=== PATIENT | male | born 1970 | race African-American/Black ===

== ENCOUNTER 2016-11-25 05:41 | Inpatient (IN) | payer BC ==
[2016-11-12 09:31] LABS: HEMATOCRIT 41.6 % (42.0-52.0); HEMOGLOBIN 14.5 gm/dL (14.0-18.0); MCH 31.4 pg (26.0-34.0); MCHC 34.8 g/dL (28.0-37.0); MCV 90.5 fL (80.0-100.0); RBC 4.6 mil/uL (4.50-6.00); RDW 12.6 % (10.5-14.5); WBC 2.9 thou/uL (4.0-11.0)
[2016-11-12 09:40] LABS: URINE BILIRUBIN NEGATIVE (Negative); URINE BLOOD NEGATIVE (Negative); URINE COLOR YELLOW; URINE GLUCOSE-RANDOM* NEGATIVE (Negative); URINE KETONES NEGATIVE (Negative); URINE LEUKOCYTES-REFLEX NEGATIVE (Negative); URINE PROTEIN (DIPSTICK) NEGATIVE (Negative); URINE UROBILINOGEN 0.2 E.U./dl (0.2-1.0)
[2016-11-12 09:43] LABS: PROTIME 10.8 Seconds (9.3-11.4)
[2016-11-12 09:44] LABS: ALBUMIN 3.9 g/dL (3.4-5.0); CALCIUM 9.1 mg/dL (8.5-10.1); CREATININE 0.9 mg/dL (0.6-1.3); POTASSIUM 3.8 mmol/L (3.5-5.1)
[2016-11-25] VITALS (9 sets, daily range): BP systolic 97–159; BP diastolic 72–87
[~2016-11-25] VITALS: Ht 175.3 cm; Wt 64.9 kg
--- NOTE | ~2016-11-25 | H ---
[facility] [address] [place] [address] HISTORY AND PHYSICAL Name: CRISTINO NGUYEN Room #: 537-P [facility] IN M.R.#: [id number] Admission: 11/25/16 Attend Phys: Broderick Jolley MD Discharge: 11/26/16 Date of : 66 Report #: [id number] THIS REPORT FOR: //name// For History and Physical, please see office documentation/handwritten note in the patient's medical record. By: 0810 Broderick Jolley MD /
--- NOTE | ~2016-11-25 | O ---
[facility] [place] [address] OPERATIVE REPORT Name: CRISTINO NGUYEN Room #: 537-P [facility] IN M.R.#: [id number] Admission: 11/25/16 Attend Phys: Broderick Jolley MD Discharge: 11/26/16 Date of : 66 Report #: [id number] THIS REPORT FOR: //name// CC: Ricci Jolley DATE OF SERVICE: 11/25/2016 PREOPERATIVE DIAGNOSIS: Right hip osteoarthritis. POSTOPERATIVE DIAGNOSIS: Right hip osteoarthritis. PROCEDURE: Right total hip arthroplasty using a revision femoral stem. SURGEON: Broderick Jolley M.D. FOOD AND NUTRITION SUPERVISOR: Broderick Gallegos M.D. and Geri Hawthorne PA-C. ANESTHESIA: General endotracheal. IMPLANTS: [employer]hew size 56 R3 acetabular cup with one acetabular screw and a size 40+0 Oxinium head as well as a Redapt size 13 x 240 standard offset femoral stem. ESTIMATED BLOOD LOSS: 150 mL. COMPLICATIONS: None. SPECIMENS: None. CONDITION UPON LEAVING THE OPERATING ROOM: Stable. INDICATIONS FOR PROCEDURE: The patient at a 46-year-old gentleman with severe right hip osteoarthritis. He had failed conservative treatment for this and elected for right total hip arthroplasty. He previously has had a right midshaft femur fracture that was treated with an IM nail subsequently and has had his nail removed. DESCRIPTION OF PROCEDURE: Risks, benefits, alternatives, complications were discussed in detail with the patient including but not limited to risk of anesthesia, risk of damage to nerves, arteries, blood vessels, risk for infection, bleeding, risk for leg length discrepancy, instability, intraoperative fracture and need for reoperation. Informed consent was obtained from the patient. The right hip was appropriately marked in the preoperative holding area. IV Ancef was given for preoperative antibiotics. He was brought to the operating room and placed in supine position on the operating room table. [address] [address] OPERATIVE REPORT Name: WENDYCRISTINO Wilfred Room #: 537-P [facility] IN M.R.#: [id number] Admission: 11/25/16 Attend Phys: Broderick Jolley MD Discharge: 11/26/16 Date of : 66 Report #: [id number] General endotracheal anesthesia was induced without complication. He was then placed in the left lateral decubitus position with the right hip uppermost. Right hip and lower extremity were prepped and draped in normal sterile fashion. Timeout was performed properly identifying the patient and procedure as well as the instrumentation and implants. All in the operating room were in agreement. Standard posterior approach to the hip was made with 10 blade through the skin. Dissection was taken down the fascia with Bovie cautery and a fresh #10 blade was used to make a fascial incision. This was taken proximally and distally with curved Boyle scissor. Charnley retractor was placed and he had extensive scar tissue along the posterior aspect of the femur. The piriformis was not identifiable and the posterior capsule and scar tissue were taken off subperiosteally off the greater trochanter. Deep retractors were placed, and the hip was dislocated and there was extensive osteoarthritic change of the femoral head. Femoral neck cut was made 1 cm proximal to lesser trochanter and femoral head was removed. Deep acetabular retractors were placed and the labrum was removed sharply. Pulvinar was removed with Bovie cautery. Acetabulum was then sequentially reamed up to a size 56, at which point there was excellent bleeding cancellous bone. A size 55 trial cup was placed in, found to have a good fit. A final size 56 R3 acetabular cup was placed and one acetabular screw was placed for backup fixation. The polyethylene liner was placed for a size 40 head. Attention was then turned to the femur. This was reamed and broached and it was decided to check an intraoperative x-ray secondary to very sclerotic bone within his femoral canal to ensure that we were within the canal with our broach. The intraoperative x-ray showed a lateral perforation of the cortex with the broach and at this point, it was decided that we may need to switch to a long stem. My partner, Dr. Broderick Gallegos joined me for this portion of the case to help with decision making and assistance. We had to use multiple drills to drill out the femoral canal and ultimately we were able to get down into the femoral canal under fluoroscopic ____ imaging. It was decided that we use a Redapt stem for this and we reamed down up to a size 13 reamer, this was left in place and ____ proximally. A size 13 x 240 Redapt trial was then placed. Hip was reduced, taken through range of motion, found to be stable, found to have near equal leg lengths using a 40+4 head. Hip was then dislocated and the trial was removed and a final size 13 x 240 standard offset Redapt stem was placed down the femoral canal under fluoroscopic guidance to ensure that we were within the canal under AP and lateral imaging. This was seated to the level of the greater trochanter trialed again with a 40+0 head. Hip was reduced, taken through range of motion, found to be stable, found to have nearly equal leg lengths. Hip was dislocated one more time, wound was thoroughly irrigated with normal saline. Final size 40+4 Oxinium head was placed. Hip was reduced, taken through range of motion, found to be stable. The wound was thoroughly irrigated with normal saline. A periarticular injection consisting of morphine, ropivacaine, epinephrine and Toradol was placed around the hip joint. The capsule was repaired with 0 FiberWire. Fascia was closed with 0 Vicryl, skin was closed with 2-0 Vicryl and 3-0 Monocryl, Dermabond and Aquacel. The patient [facility] [address] [place] [address] OPERATIVE REPORT Name: CRISTINO NGUYEN Room #: 537-P [facility]#: [id number] Admission: 11/25/16 Attend Phys: Broderick Jolley MD Discharge: 11/26/16 Date of : 66 Report #: [id number] tolerated this procedure well and went to the recovery room under care of anesthesia postoperatively. <ELECTRONICALLY SIGNED> By: Broderick Jolley MD 11/27/16 0927 1440 [id number] Broderick Jolley MD /nt
[~2016-11-25 05:41] MED LIST: HYDROCODON-ACE1 EAC7 PO; IBUPROFEN 200200 M1 PO; LEVOTHYROXIN0.125 M1 PO; MEDROLDOSEPACK PO; PERCOCET PO; ZANAFLEX4 MG PO
[2016-11-26] VITALS: BP 114/67
[2016-11-26 04:00] VITALS: BP 103/57
[2016-11-26 05:29] LABS: HEMATOCRIT 31.7 % (42.0-52.0); HEMOGLOBIN 11.2 gm/dL (14.0-18.0); MCH 31.8 pg (26.0-34.0); MCHC 35.4 g/dL (28.0-37.0); RBC 3.52 mil/uL (4.50-6.00); RDW 12.1 % (10.5-14.5); WBC 8.9 thou/uL (4.0-11.0)
[2016-11-26 07:40] VITALS: BP 117/71
[2016-11-26] MEDS ORDERED: CVS BUFFERED A325 MG PO (08:40)
[2016-11-26] MEDS ORDERED: MS CONTIN15 MG PO (08:41)
[2016-11-26] MEDS ORDERED: PERCOCET PO (08:41)
[2016-11-26] MEDS ORDERED: NEURONTIN 300300 M1 PO (08:41)
[2016-11-26] MEDS ORDERED: ULTRA-LIGHT RO1 EACH MC (08:42)
[2016-11-26 10:52] VITALS: BP 117/71
[2016-11-26 12:11] VITALS: BP 117/71
== END 2016-11-26 13:43 | disposition home health service (06) | DRG 470 ==
LOC: TBA 05:41 → 5S 05:41 → PRE 08:12 → 5S 16:57
PROVIDERS: Orthopaedic Surgery
PROC: 0SR901Z Replacement of Right Hip Joint with Metal Synthetic Substitute, Open Approach (ICD-10-PCS; principal; 2016-11-25)
DX: M16.11 Unilateral primary osteoarthritis, right hip (principal)
CPT/HCPCS: 10785; 50010; 50101; 50149; 50382; 50414; 50455; 50612; 50635; 51412; 51771; 52256; 53078; 53368; 54118; 56524; 56527; 56528; 56530; 57095; 62110; 62900; 70005

== ENCOUNTER 2018-02-26 01:39 | Emergency (ER) | payer BC ==
[~2018-02-26] VITALS: Ht 175.3 cm; Wt 72.6 kg
--- NOTE | ~2018-02-26 | EKG ---
[address] [place] [address] ELECTROCARDIOGRAM REPORT Name: CRISTINO NGUYEN [id number] Admission: 02/26/18 Attend Phys: Discharge: 02/26/18 Date of : 66 Report #: [id number] THIS REPORT FOR: //name// [facility] ED Test Date: 2018-02-26 Test Time: 02:05:02 Pat Name: CRISTINO NGUYEN Department: Room: Gender: M Supervisory Investigative Specialist: JEN : 1970 Requested By: Johnny Garcia Order Number: [id number] MD: Salomon Coronado Measurements Intervals [place] Rate: 67 P: 68 AR: 158 QRS: 70 QRSD: 95 T: 55 QT: 374 QTc: 395 Interpretive Statements Sinus rhythm No significant abnormality Compared to ECG 10/12/2015 13:17:23 Atrial premature complex(es) no longer present Electronically Signed On 03-01-2018 9:00:38 CDT by Salomon Coronado [email or web address] <ELECTRONICALLY SIGNED> By: Salomon Coronado MD, [facility] 03/01/18 0900 D: [id number] Salomon Coronado MD, FACC /EPI
[~2018-02-26 01:39] MED LIST changes: +CVS BUFFERED A325 MG PO; +MS CONTIN15 MG PO; +NEURONTIN 300300 M1 PO; +ULTRA-LIGHT RO1 EACH MC
[2018-02-26 02:19] LABS: URINE BILIRUBIN NEGATIVE (Negative); URINE BLOOD NEGATIVE (Negative); URINE CLARITY CLEAR; URINE COLOR YELLOW; URINE GLUCOSE-RANDOM* NEGATIVE (Negative); URINE KETONES NEGATIVE (Negative); URINE NITRITE-REFLEX NEGATIVE (Negative); URINE PROTEIN (DIPSTICK) NEGATIVE (Negative); URINE UROBILINOGEN 0.2 E.U./dl (0.2-1.0)
[2018-02-26 02:23] LABS: URINE LEUKOCYTES-REFLEX 1+ (Negative)
[2018-02-26 02:24] LABS: HEMOGLOBIN 14.4 gm/dL (14.0-18.0); MCHC 35.1 g/dL (28.0-37.0); MCV 91.3 fL (80.0-100.0); RBC 4.49 mil/uL (4.50-6.00); RDW 12.6 % (10.5-14.5); WBC 4.3 thou/uL (4.0-11.0)
[2018-02-26 02:32] LABS: ANION GAP 6 mmol/L (7-16); BUN 4 mg/dL (7-18); CALCIUM 9.2 mg/dL (8.5-10.1); CHLORIDE 102 mmol/L (98-107); CO2 29 mmol/L (21-32); CREATININE 0.9 mg/dL (0.7-1.3); GLUCOSE 101 mg/dL (74-106); POTASSIUM 3.5 mmol/L (3.5-5.1); SODIUM 137 mmol/L (136-145)
[2018-02-26 02:37] LABS: MUCUS >6 Heavy strn/LPF (None Seen); SQUAMOUS 0-3 Few /LPF (0-3); URINE RBC 0-2 Rare /HPF (0-2)
[2018-02-26 02:39] LABS: CASTS None Seen /LPF (None Seen); CRYSTALS None Seen /LPF (None Seen)
[2018-02-26 02:40] LABS: ALBUMIN 3.9 g/dL (3.4-5.0); LIPASE 428 U/L (73-393); SGOT 20 U/L (15-37); SGPT 27 U/L (30-65); TOTAL BILIRUBIN 0.8 mg/dL (<0.1-1.0); TOTAL PROTEIN 7.9 g/dL (6.4-8.2); TROPONIN-I <0.06 ng/mL (<0.06)
[2018-02-26] MEDS ORDERED: PEPCID20 MG PO (03:27)
== END 2018-02-26 05:07 | disposition home or self-care (01) ==
LOC: ER 01:39
PROVIDERS: Emergency Medicine
DX: K85.90 Acute pancreatitis without necrosis or infection, unspecified (principal); K29.20 Alcoholic gastritis without bleeding; N39.0 Urinary tract infection, site not specified; A59.9 Trichomoniasis, unspecified; Z96.641 Presence of right artificial hip joint; F17.210 Nicotine dependence, cigarettes, uncomplicated

== ENCOUNTER → 2018-07-30 | Outpatient (CLI) | payer BC ==
[~2018-07-30] MED LIST changes: +PEPCID20 MG PO
== END ==
LOC: RAD 14:18
DX: N63.10 Unspecified lump in the right breast, unspecified quadrant (principal)